=== PATIENT | female | born 1975 | race Hispanic/Latino ===

== ENCOUNTER 2025-04-22 14:05 | Emergency (ER) | payer MEDICAID, OTHER ==
[~2025-04-22] VITALS: Ht 167.6 cm; Wt 90.7 kg
--- NOTE | 2025-04-22 14:13 | ERN ---
ED Note History of Present Illness Stated Complaint: INSECT BITE Chief Complaint: Insect Bite Time Seen by MD: 14:07 Dictation: PATIENT IS A 50-YEAR-OLD FEMALE STATES SHE WAS AT HOME ON WEDNESDAY WHEN SHE FELT AN INSECT BITE STING HER TO HER LEFT ANTERIOR SHOULDER. NO FEVER NO CHILLS. SHE SAID SHE DID NOT DO ANYTHING BAD THAT 1ST DAY HOWEVER THIS AFTERNOON IT IS RED SWOLLEN. IN HIS SEE YOUR PRIMARY CARE DOCTOR. HE BROUGHT IN TRIAGE. Allergies: Coded Allergies: No Known Drug Allergies (Unverified Allergy, Unknown, 04/22/25) Past Medical History History: Not Applicable RN Note Reviewed/Agreed w/PFSH: Yes Review of System Dictation CONSTITUTIONAL: NEGATIVE EXCEPT FOR HPI HEAD/FACE: NEGATIVE EXCEPT FOR HPI EENT: NEGATIVE EXCEPT FOR HPI RESPIRATORY: NEGATIVE EXCEPT FOR HPI GASTROINTESTINAL/ABDOMINAL: NEGATIVE EXCEPT FOR HPI GENITOURINARY: NEGATIVE EXCEPT FOR HPI MUSCULOSKELETAL: NEGATIVE EXCEPT FOR HPI INTEGUMENTARY: NEGATIVE EXCEPT FOR HPI INSECT BITE LEFT SHOULDER NEUROLOGICAL/PSYCH: NEGATIVE EXCEPT FOR HPI HEMATOLOGIC/LYMPHATIC: NEGATIVE EXCEPT FOR HPI ALL SYSTEMS NEGATIVE, EXCEPT NOTED ABOVE. 13 POINT REVIEW OF SYSTEMS ASSESSED AND ALL NEGATIVE EXCEPT FOR ABOVE. Initial Vital Sign VS Vital Signs Date Time Temp Pulse Resp B/P (MAP) Pulse Ox O2 Delivery O2 Flow Rate FiO2 04/22/25 14:07 97.3 84 16 118/60 96 Room Air 0 04/22/25 14:18 21 Physical Exam Dictation MILD ACUTE DISTRESS, WELL DEVELOPED, NOURISHED. HEAD AND FACE: NON-TRAUMATIC. EYES: PERRL, PINK CONJUNCTIVAS, EYELID NO TRAUMA, ANTERIOR CHAMBER WITH ARCUS SENILIS. EARS: PINNAS INTACT AND NO SIGNS OF TRAUMA OR ERYTHEMA EAR CANALS CLEAR AND NO DISCHARGE TM NO ERYTHEMA NOSE: NO DISCHARGE, NO BLEEDING. OROPHARYNX: MOUTH NORMAL, TONGUE PINK, PHARYNX CLEAR,NO ERYTHEMA, TONSILS NO EXUDATES, NO ABSCESSES NOTED, MUCOUS MEMBRANE MOIST NECK: SUPPLE, NON-TENDER, NO THYROMEGALY, NO MASSES, NO JVD, NO BRUITS BREAST:DEFERRED CHEST:NO TENDERNESS, NO CREPITUS, NO PARADOXICAL MOVEMENT, NO RETRACTIONS LUNGS:CLEAR, WELL-VENTILATED, SYMMETRIC, NO RALES, NO WHEEZING, NO RHONCHI, NO STRIDOR, GOOD BREATH SOUNDS BILATERALLY HEART: REGULAR RATE, REGULAR RHYTHM, NO MURMUR, NO GALLOPS VASCULAR: NO PERIPHERAL EDEMA, ABDOMEN: SOFT, POSITIVE BOWEL SOUNDS, NONDISTENDED, NO GUARDING, NONTENDER, NO REBOUND, NO MASSES NO HEPATOMEGALY, NO SPLENOMEGALY, NO OROZCO'S SIGN, NO HERNIAS. RECTAL: DEFERRED GENITAL: DEFERRED NEUROLOGICAL: NORMAL SPEECH, MOTOR FUNCTION INTACT, SENSORY FUNCTION INTACT MUSCULOSKELETAL: TARGET LESION TO LEFT ANTERIOR SHOULDER WITH CM X 3 CM ERYTHEMA. ABRASION. LYMPHATIC: DEFERRED Results (Laboratory/Radiology) Laboratory/Radiology Laboratory Tests Test 04/22/25 14:16 White Blood Count 9.2 K/uL (4.8-10.8) Red Blood Count 4.47 MIL/uL (4.00-5.50) Hemoglobin 11.7 g/dL (12.0-16.0) L Hematocrit 35.7 % (36-48) L Mean Corpuscular Volume 79.9 fL (79-99) Mean Corpuscular Hemoglobin 26.2 pg (27.0-33.0) L Mean Corpuscular Hemoglobin Concent 32.8 g/dL (32.0-36.0) Red Cell Distribution Width 12.7 % (11.0-15.5) Platelet Count 295 K/uL (130-400) Mean Platelet Volume 9.5 fL (7.5-10.5) Immature Granulocyte % (Auto) 0.4 % (0-1) Neutrophils (%) (Auto) 76.7 % (40.0-77.0) Lymphocytes (%) (Auto) 15.2 % (21.0-51.0) L Monocytes (%) (Auto) 4.8 % (3.0-13.0) Eosinophils (%) (Auto) 2.2 % (0.0-8.0) Basophils (%) (Auto) 0.7 % (0.0-5.0) Neutrophils # (Auto) 7.1 K/uL (1.8-7.7) Lymphocytes # (Auto) 1.4 K/uL (1.0-4.8) Monocytes # (Auto) 0.4 K/uL (0.1-1.0) Eosinophils # (Auto) 0.20 K/uL (0.00-0.70) Basophils # (Auto) 0.06 K/uL (0.00-0.20) Absolute Immature Granulocyte (auto 0.04 K/uL (0-1) Nucleated Red Blood Cells 0.0 % (0.0-0.19) Sodium Level 140 mmol/L (136-145) Potassium Level 3.7 mmol/L (3.5-5.1) Chloride Level 103 mmol/L (101-111) Carbon Dioxide Level 33 mmol/L (21-32) H Blood Urea Nitrogen 14 mg/dL (7-18) Creatinine 0.6 mg/dL (0.5-1.0) Glomerular Filtration Rate Calc 111 mL/min (>90) Random Glucose 114 mg/dL (70-105) H Total Calcium 8.5 mg/dL (8.5-10.1) Labs Reviewed?: Yes ED Course ED Course Orders Procedure Category Date Status Time Cbc With Differential LAB 04/22/25 Complete 14:09 Basic Metabolic Panel LAB 04/22/25 Complete 14:09 Clindamycin 150mg Cap PHA 04/22/25 Complete (Cleocin 150mg Cap 14:30 Acetaminophen 500mg PHA 04/22/25 Complete Tab (Tylenol 500mg T 14:30 Current Medications Medications (Trade) Dose Ordered Sig/Ollie Route PRN Reason Start Time Stop Time Status Last Admin Dose Admin Acetaminophen (TYLenol 500MG TAB) 1,000 mg ONCE ONCE PO 04/22/25 14:30 04/22/25 14:31 DC 04/22/25 14:24 Clindamycin HCl (Cleocin 150mg Cap) 600 mg ONCE ONCE PO 04/22/25 14:30 04/22/25 14:31 DC 04/22/25 14:24 Vital Signs Date Time Temp Pulse Resp B/P (MAP) Pulse Ox O2 Delivery O2 Flow Rate FiO2 04/22/25 14:18 97.3 84 16 118/60 96 Room Air* 0 21 04/22/25 14:07 97.3 84 16 118/60 96 Room Air 0 1438/PATIENT IS HEMODYNAMICALLY STABLE, AFEBRILE. LABS UNREMARKABLE PATIENT WILL BE GIVEN CLINDAMYCIN 600 MG LOADING DOSE REFERRED TO HER PRIMARY CARE DOCTOR IN 1-2 DAYS IN [facility] FOR MANAGEMENT OF HER INFECTED INSECT BITE Medical Decision Making MDM MEDICAL DECISION-MAKING BASED ON BASIC LABS AND LOADING PATIENT WITH CLINDAMYCIN FOR AN INFECTED INSECT BITE. LABS UNREMARKABLE, NO LEUKOCYTOSIS. PATIENT AFEBRILE DISCHARGED HOME WITH CLINDAMYCIN TOLD SEE HER DOCTOR IN [place] IN THE NEXT 1-2 DAYS FOR MANAGEMENT. DX & DISP Disposition: Discharge Departure Impression: Primary Impression: Infected insect bite of left shoulder Condition: Stable Scripts Clindamycin HCl (Clindamycin HCl) 300 Mg Capsule 1 CAP PO QID for 10 Days, #40 CAP 0 Refills Prov: MADISYN SIMON 04/22/25 Additional Instructions: FOLLOW-UP WITH PRIMARY CARE PROVIDER IN 1 TO 2 DAYS. TAKE MEDICATIONS DIRECTED HERE IN THE EMERGENCY ROOM. OKAY TO CONTINUE HOME MEDICATIONS UNLESS OTHERWISE DISCUSSED DURING YOUR VISIT IN THE EMERGENCY ROOM TODAY. RETURN TO YOUR NEAREST EMERGENCY ROOM IF SYMPTOMS WORSEN OR IF THERE IS NO IMPROVEMENT. CALL 911 IF YOU NEED IMMEDIATE ASSISTANCE. TAKE TYLENOL OR MOTRIN [id number] NEEDED AND IF NO CONTRAINDICATIONS ARE PRESENT. INCREASE ORAL HYDRATION. A WOUND CULTURE OR URINE CULTURE WAS ORDERED HERE IN THE EMERGENCY ROOM DEPARTMENT PLEASE FOLLOW-UP WITH PRIMARY CARE PROVIDER AND ADVISE THEM TO GET REPEAT PORTS FROM OUR FACILITY. IF YOU HAD ANY KEVIN WRAP/SPLINTS THAT WERE APPLIED HERE, PLEASE DO NOT REMOVE THEM UNTIL YOU SEE YOUR PRIMARY CARE OR SPECIALTY. TAKE ANTIBIOTICS DIRECTED UNTIL GONE. SEE YOUR PRIMARY CARE DOCTOR IN [facility] IN THE NEXT 1-2 DAYS FOR MANAGEMENT OF YOUR INSECT BITE. Time of Disposition: 14:37 I have reviewed the case, and I agree with, Diagnosis and Plan MADISYN SIMON Apr 22, 2025 14:13
[2025-04-22 14:18] VITALS: BP 118/60; PULSE 84; RESP 16; TEMP 97.4; O2SAT 96
[2025-04-22 14:23] LABS: IMMATURE GRANULOCYTE ABSOLUTE 0.04 K/uL (0-1); NUCLEATED RED BLOOD CELLS 0.0 % (0.0-0.19); PLATELET COUNT (AUTO) 295 K/uL (130-400); RED BLOOD CELL COUNT(AUTO) 4.47 MIL/uL (4.00-5.50); RED CELL DISTRIBUTION WIDTH 12.7 % (11.0-15.5); WHITE BLOOD COUNT (AUTO) 9.2 K/uL (4.8-10.8)
[2025-04-22] MEDS: CLINDAMYCIN 150 MG CAP PO ONE (14:24)
[2025-04-22 14:34] LABS: CREATININE 0.6 mg/dL (0.5-1.0); GLOMERULAR FILTR. RATE CALC 111.0 mL/min (>90); GLUCOSE,RANDOM 114.0 mg/dL (70-105); SODIUM SERUM 140.0 mmol/L (136-145); UREA NITROGEN, BLOOD 14.0 mg/dL (7-18)
[2025-04-22] MEDS ORDERED: CLIN-141 PO (14:38)
== END 2025-04-22 14:40 | disposition home or self-care (01) ==
LOC: EDH 14:05
DX: S40.262A Insect bite (nonvenomous) of left shoulder, initial encounter (principal); W57.XXXA Bitten or stung by nonvenomous insect and other nonvenomous arthropods, initial encounter; Y93.89 Activity, other specified; Y92.89 Other specified places as the place of occurrence of the external cause; Y99.8 Other external cause status
CPT/HCPCS: 36415; 80048; 85025; 99283